=== PATIENT | female | born 1955 | race Caucasian/White ===

== ENCOUNTER 2019-09-26 06:18 | Inpatient (IN) ==
[~2019-09-26 06:18] MED LIST: Bacitracin 50,000 UNIT, Polymyxin B Sulfate 500,000 UNIT, Sodium Chloride IRRigation 1,... IR ONE
[2019-09-26] MEDS ORDERED: Albuterol 2.5 MG/3 ML NEBULIZER IH PRN ×2 (06:25→07:21)
[2019-09-26] MEDS ORDERED: Ringers Solution, Lactated 1,000 ML IVC SCH (06:30)
[2019-09-26] MEDS ORDERED: Lidocaine -MPF 2% 2 ML VIAL ONE (07:08)
[2019-09-26] MEDS ORDERED: *HR* Midazolam HCl 2 MG/2 ML VIAL ONE (07:08)
[2019-09-26] MEDS ORDERED: Lidocaine HCL 4 ML Topical Solution (Laryng-O-Jet Kit Sterile Pak) TP ONE (07:08)
[2019-09-26] MEDS ORDERED: Ondansetron 4 MG/2 ML VIAL ONE (07:08)
[2019-09-26] MEDS ORDERED: *HR* Succinylcholine 200 MG/10 ML VIAL IVP ONE (07:08)
[2019-09-26] MEDS ORDERED: Dexamethasone 4 MG/ML VIAL ONE (07:08)
[2019-09-26] MEDS ORDERED: *HR* Rocuronium Bromide 50 MG/5 ML VIAL ONE (07:08)
[2019-09-26] MEDS ORDERED: *HR* FentaNYL (PF) 100 MCG/2 ML VIAL ONE (07:08)
[2019-09-26] MEDS ORDERED: *HR* Propofol 200 MG/20 ML VIAL IVP ONE (07:08)
[2019-09-26] MEDS ORDERED: *HR* Phenylephrine 10 MG/ML VIAL ONE (07:09)
[2019-09-26] MEDS ORDERED: *HR* Remifentanil 1 MG VIAL IVP ONE (07:09)
[2019-09-26] MEDS ORDERED: Acetaminophen IV 1,000 MG/100 ML INFUS..BTL IVPB ONE (07:20)
[2019-09-26] MEDS ORDERED: Ondansetron 4 MG/2 ML VIAL IVP ONE (07:21)
[2019-09-26] MEDS ORDERED: Ketorolac 15 MG/ML VIAL IVP ONE (07:21)
[2019-09-26] MEDS ORDERED: *HR* PHENYLEPHRINE 1,000 MCG/10 ML SYRINGE IVP ONE (10:24)
[2019-09-26] MEDS: Morphine Sulfate 2 MG/ML SYRINGE IVP PRN ×2 (11:20→11:25)
[2019-09-26] MEDS ORDERED: Ondansetron 4 MG/2 ML VIAL IVP PRN (12:13)
[2019-09-26] MEDS ORDERED: NON-FORMULARY MEDICATION 1 EACH EACH (Alendronate Sodium [Fosamax] 70 MG) PO SCH (12:13)
[2019-09-26] MEDS ORDERED: Naloxone 0.4 MG/ML INJ IVP PRN (12:13)
[2019-09-26] MEDS: *HR* OxyCODONE Immed Rel 5 MG TABLET PO PRN ×2 (13:21→17:21)
[2019-09-26] MEDS: *HR* LORazepam 1 MG TABLET PO SCH ×2 (15:37→21:47)
[2019-09-26] MEDS: Gabapentin 300 MG CAPSULE PO SCH ×2 (16:49→21:47)
[2019-09-26] MEDS: *HR* Metformin 500 MG TABLET PO SCH (16:56)
[2019-09-26] MEDS: Ringers Solution, Lactated 1,000 ML IVC SCH (17:21)
[2019-09-26] MEDS ORDERED: Dextrose Gel 15 GM/37.5 ML TUBE PO PRN ×2 (17:29)
[2019-09-26] MEDS ORDERED: *HR* Dextrose 50 % in Water (Syg) 50 ML SYRINGE IVP PRN (17:29)
[2019-09-26] MEDS ORDERED: D5% in Water 1,000 ML IVC PRN (17:29)
[2019-09-26] MEDS: Insulin LISPRO 300 UNITS/3 ML VIAL SQ SCH ×2 (17:49→21:47)
[2019-09-26] MEDS: Promethazine/Codeine Oral Sryup 5 ML UDC PO PRN (23:52)
[2019-09-27] MEDS: *HR* OxyCODONE Immed Rel 5 MG TABLET PO PRN ×5 (04:29→21:15)
[2019-09-27] MEDS: *HR* Metformin 500 MG TABLET PO SCH ×2 (08:22→17:41)
[2019-09-27] MEDS: Aspirin Enteric Coated 81 MG Tablet PO SCH (08:23)
[2019-09-27] MEDS: Multivit/Ca/Min/Fe/FA 1 TAB TABLET PO SCH (08:23)
[2019-09-27] MEDS: Gabapentin 300 MG CAPSULE PO SCH ×3 (08:23→21:15)
[2019-09-27] MEDS: *HR* LORazepam 1 MG TABLET PO SCH ×3 (08:23→21:15)
[2019-09-27] MEDS: Cholecalciferol (D-3) 1,000 UNIT (25MCG) TABLET PO SCH (08:23)
[2019-09-27] MEDS: Insulin LISPRO 300 UNITS/3 ML VIAL SQ SCH ×4 (08:24→21:16)
[2019-09-27] MEDS: [UNRECOGNIZED DRUG - OTHER] PO SCH (08:29)
[2019-09-27] MEDS ORDERED: NON-FORMULARY MEDICATION 1 EACH EACH (Garlic 1,000 MG) PO SCH (09:00)
[2019-09-27] MEDS ORDERED: Gadolinium Contrast Agent (WT Based) IV PRN (11:42)
[2019-09-27] MEDS: Acetaminophen 325 MG TABLET PO PRN ×2 (12:08→18:31)
[2019-09-27 12:27] LABS: Hematocrit 34.2 % (35.3-44.9); Hemoglobin 11.5 g/dL (11.5-15.4)
[2019-09-27 12:38] LABS: BUN/Creatinine Ratio 19 (6-26); Blood Urea Nitrogen 14 mg/dL (8-23); Calcium 9.1 mg/dL (8.6-10.3); Carbon Dioxide 31 mEq/L (23-29); Chloride 105 mEq/L (98-107); Glucose 94 mg/dL (70-105); Osmolality,Calculated 292 (280-300); Potassium 4.1 mEq/L (3.5-5.1); Sodium 141 mEq/L (136-145); eGFR For African Americans > 60 (> 60); eGFR For Non-African Americans > 60 (> 60)
[2019-09-27] MEDS: Promethazine/Codeine Oral Sryup 5 ML UDC PO PRN (18:34)
[2019-09-27] MEDS: *HR* HYDROcodone/Acet 5/325 mg TABLET PO PRN (23:26)
[2019-09-28] MEDS: Insulin LISPRO 300 UNITS/3 ML VIAL SQ SCH ×4 (07:45→20:41)
[2019-09-28] MEDS: *HR* OxyCODONE Immed Rel 5 MG TABLET PO PRN ×4 (07:46→20:55)
[2019-09-28] MEDS: *HR* Metformin 500 MG TABLET PO SCH ×2 (07:47→17:49)
[2019-09-28] MEDS: *HR* LORazepam 1 MG TABLET PO SCH ×3 (07:47→20:41)
[2019-09-28] MEDS: Aspirin Enteric Coated 81 MG Tablet PO SCH (07:47)
[2019-09-28] MEDS: Cholecalciferol (D-3) 1,000 UNIT (25MCG) TABLET PO SCH (07:48)
[2019-09-28] MEDS: Gabapentin 300 MG CAPSULE PO SCH ×3 (07:48→20:41)
[2019-09-28] MEDS: Multivit/Ca/Min/Fe/FA 1 TAB TABLET PO SCH (07:48)
[2019-09-28] MEDS: [UNRECOGNIZED DRUG - OTHER] PO SCH (08:09)
[2019-09-28] MEDS: *HR* HYDROcodone/Acet 5/325 mg TABLET PO PRN (10:38)
[2019-09-28] MEDS: Acetaminophen 325 MG TABLET PO PRN (15:15)
[2019-09-28] MEDS: Ringers Solution, Lactated 1,000 ML IVC SCH ×3 (19:24→23:11)
[2019-09-29] MEDS: Promethazine/Codeine Oral Sryup 5 ML UDC PO PRN (00:51)
[2019-09-29] MEDS: *HR* OxyCODONE Immed Rel 5 MG TABLET PO PRN ×5 (03:12→21:50)
[2019-09-29] MEDS: Insulin LISPRO 300 UNITS/3 ML VIAL SQ SCH ×4 (08:31→21:16)
[2019-09-29] MEDS: Cholecalciferol (D-3) 1,000 UNIT (25MCG) TABLET PO SCH (09:33)
[2019-09-29] MEDS: Gabapentin 300 MG CAPSULE PO SCH ×3 (09:33→21:16)
[2019-09-29] MEDS: Multivit/Ca/Min/Fe/FA 1 TAB TABLET PO SCH (09:33)
[2019-09-29] MEDS: *HR* Metformin 500 MG TABLET PO SCH ×2 (09:33→18:14)
[2019-09-29] MEDS: Aspirin Enteric Coated 81 MG Tablet PO SCH (09:33)
[2019-09-29] MEDS: *HR* LORazepam 1 MG TABLET PO SCH ×3 (09:34→21:16)
[2019-09-29] MEDS: [UNRECOGNIZED DRUG - OTHER] PO SCH (09:35)
[2019-09-29] MEDS: Acetaminophen 325 MG TABLET PO PRN (19:38)
[2019-09-29 21:53] VITALS: BP 105/69
== END 2019-09-29 22:03 | disposition home health service (06) | DRG 455 ==
LOC: SAMDAY 06:18 → 3NENU 12:05
PROVIDERS: ADMIT Orthopaedic Surgery Orthopaedic Surgery of the Spine; ATTEND Orthopaedic Surgery Orthopaedic Surgery of the Spine